=== PATIENT | male | born 1975 | race Caucasian/White ===

== ENCOUNTER 2022-03-14 05:51 | Emergency (ER) | payer SELFPAY ==
[2022-03-14] MEDS ORDERED: Ketorolac 30 MG/ML SDV IM ONE (06:16)
[2022-03-14 07:00] LABS: CARBON DIOXIDE,CO2 24.5 mmol/L (21.0-32.0); POTASSIUM,K 3.8 mmol/L (3.5-5.1)
== END 2022-03-14 07:51 | disposition home or self-care (01) ==
LOC: MW.ED 05:51
DX: M10.9 Gout, unspecified (principal); Z79.899 Other long term (current) drug therapy
CPT/HCPCS: 36415; 73630; 80048; 84550; 85025; 85652; 86140; 96372; 99283; J1885